=== PATIENT | male | born 1945 | race Caucasian/White ===

== ENCOUNTER → 2017-11-14 | Outpatient (CLI) | payer OTHER ==
[~2017-11-14] MED LIST: ASPECOTC PO; BENA40TA6 PO; FENO160T PO; MULT-506 PO; OPTIRAY 320 IV PRN; OXYC-57 PO; TRIA0.1C55 TOP
--- NOTE | 2017-11-14 07:11 | DIAGNOSTIC IMAGING REPORT ---
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 TECHNIQUE: Multidetector CT of the sinuses was performed before and after the administration of intravenous contrast. IV contrast: 93 mL of Optiray 320. A dose lowering technique was used consistent with the principles of ALARA (as low as reasonably achievable). COMPARISON: 06/10/2015. CT DOSE (mGy.cm): The estimated cumulative dose is 1302.82 mGy.cm. FINDINGS: [employer] Protection Specialist topogram: The patient is edentulous. Enhancing soft tissue mass in the anterior nasal cavity, which arises from the right nares and right anterior aspect of the cartilaginous portion of the nasal septum. There is extension of the enhancing mass into the frontal sinuses. Gross osseous destruction of the nasal bones and anterior most portion of the bony nasal septum. Osseous destruction of anterior ethmoid air cell septations as well as the outer wall of the frontal sinuses. The mass also extends along the superficial soft tissue of the nasofrontal region. No osseous destruction or bethany invasion of the nasal lacrimal ducts. No abnormal soft tissue infiltration approaches the bilateral medial canthi, no evidence of intraorbital invasion. The globes appear intact. Remainder of the paranasal sinuses and mastoid air cells clear. Vessels patent though with atherosclerosis of the cavernous segments of the internal carotid arteries noted. Allowing for limitations of CT, no evidence of intracranial extension. Visualized portion of the brain parenchyma within normal limits. IMPRESSION: 1. Destructive neoplasm centered at the anterior nasal cavity arising from the right nares and right anterior aspect of the cartilaginous portion of the nasal septum with extension into the anterior ethmoid air cells and frontal sinuses. No bethany evidence of intracranial or intraorbital extension. Electronically signed by: Kyle Ansari M.D. 11/14/2017 7:10 AM Dictated Date/Time: 11/14/2017 7:03 AM
== END | disposition home or self-care (01) ==
LOC: C.CTS 06:26
DX: C31.1 Malignant neoplasm of ethmoidal sinus (principal)

== ENCOUNTER → 2017-11-14 | Outpatient (CLI) | payer OTHER ==
[~2017-11-14] MED LIST changes: -OPTIRAY 320 IV PRN
--- NOTE | 2017-11-14 09:52 | DIAGNOSTIC IMAGING REPORT ---
CHEST 2 VIEWS ROUTINE CLINICAL HISTORY: 72 years-old Male presenting with Z01.818 Visit for pre-operative [id number]. TECHNIQUE: PA and lateral views of the chest were obtained. COMPARISON: PET/CT from 03/28/2016. FINDINGS: Atherosclerosis of the aortic arch. Cardiac silhouette normal in size. Lungs hyperinflated. No focal opacity. No large effusion or pneumothorax. Degenerative changes of the thoracic spine. Upper abdomen normal. IMPRESSION: 1. Findings suggest emphysema. No focal infiltrate to suggest pneumonia. Electronically signed by: Kyle Ansari M.D. 11/14/2017 9:51 AM Dictated Date/Time: 11/14/2017 9:49 AM
[2017-11-14 10:21] LABS: BASO % 0.2 %; BASO ABS # 0.01 K/uL (0-0.2); EOS % 1.2 %; EOS ABS # 0.07 K/uL (0-0.5); HEMATOCRIT 37.6 % (42-52); HEMOGLOBIN 13.4 g/dL (14.0-18.0); IG# 0.01 K/uL (0.00-0.02); LYMPH % 13.7 %; LYMPH ABS # 0.78 K/uL (1.2-3.4); MEAN CELL VOLUME 101.3 fL (80-100); MEAN CORPUSCULAR HEMOGLOBIN 36.1 pg (25-34); MEAN CORPUSCULAR HGB CONC 35.6 g/dl (32-36); MEAN PLATELET VOLUME 9.5 fL (7.4-10.4); MONO % 8.4 %; MONO ABS # 0.48 K/uL (0.11-0.59); NEUT % 76.3 %; NEUT ABS # 4.34 K/uL (1.4-6.5); PLATELET COUNT 180 K/uL (130-400); RED CELL DISTRIBUTION WIDTH CV 12.6 % (11.5-14.5); RED CELL DISTRIBUTION WIDTH SD 46.5 fL (36.4-46.3); WHITE BLOOD COUNT 5.69 K/uL (4.8-10.8)
[2017-11-14 10:25] LABS: POTASSIUM 4.7 mmol/L (3.5-5.1)
[2017-11-14 10:26] LABS: PTT PATIENT 26.1 SECONDS (21.0-31.0)
== END | disposition home or self-care (01) ==
LOC: C.CPL 09:13
DX: Z01.818 Encounter for other preprocedural examination (principal); C31.1 Malignant neoplasm of ethmoidal sinus

== ENCOUNTER 2017-11-15 06:52 | Day surgery (SDC) | payer OTHER ==
[~2017-11-15] VITALS: Ht 172.7 cm; Wt 60.0 kg
[~2017-11-15 06:52] MED LIST changes: -ASPECOTC PO; +CEFAZOLIN 2000MG IV PUSH 15 ML IV SCH; +LACTATED RINGER'S 1000ML 1,000 ML IV SCH; +OXYMETAZOLINE HCL 0.05% NA SPR 15 ML BTL SCH
[2017-11-15 07:23] VITALS: BP 167/79; PULSE 68; TEMP 36.4; O2SAT 98; Ht 172.7 cm; Wt 60.0 kg
[2017-11-15] MEDS ORDERED: ASPECOTC PO (07:48)
[2017-11-15] MEDS ORDERED: FENTANYL CITRATE INJ 50 MCG/1 ML 2 ML VIAL ONE (07:51)
[2017-11-15] MEDS ORDERED: MIDAZOLAM HCL 1 MG/ML 2ML VIAL ONE (07:51)
--- NOTE | 2017-11-15 08:21 | History & Physical Bridge Note ---
H&P Re-Evaluation Bridge Note: I have examined the patient, reviewed the History & Physical and in the interval since the performance of the History & Physical I have noted the following changes of clinical significance: No changes noted
[2017-11-15] MEDS ORDERED: EpINEphrine INJ 1MG/ML AMP 1 MG/ML AMP ONE (08:46)
[2017-11-15] MEDS ORDERED: LIDOCAINE/EPINEPHRINE 1% 20 ML VIAL ONE (08:46)
[2017-11-15] MEDS ORDERED: LIDOCAINE 4% INH SOLN 4 ML BTL ONE (08:46)
[2017-11-15] MEDS ORDERED: TRIAMCINOLONE ACET 40 MG/ML VIAL ONE (08:47)
[2017-11-15] MEDS ORDERED: ONDANSETRON INJ 2 MG/ML 2 ML VIAL IV PRN ×2 (09:15→10:15)
[2017-11-15] MEDS ORDERED: ATROPINE SULFATE 0.1 MG/ML 5ML SYR IV PRN (09:15)
[2017-11-15] MEDS ORDERED: FENTANYL CITRATE INJ 50 MCG/1 ML 2 ML VIAL IV PRN (09:15)
[2017-11-15] MEDS ORDERED: EpHEDrine SULFATE INJ 50 MG/ML AMP IV PRN (09:15)
[2017-11-15] MEDS ORDERED: DEXAMETHASONE SOD INJ 4 MG/ML VIAL ONE (09:21)
[2017-11-15] MEDS ORDERED: SUCCINYLCHOLINE CHLORIDE 20 MG/ML 10 ML VIAL IV ONE (09:21)
[2017-11-15] MEDS ORDERED: ONDANSETRON INJ 2 MG/ML 2 ML VIAL ONE (09:21)
[2017-11-15] MEDS ORDERED: ROCURONIUM BROMIDE 10 MG/ML 5 ML VIAL IV ONE (09:21)
[2017-11-15] MEDS ORDERED: LIDOCAINE HCL 2% 2 ML VIAL (20MG/ML) ONE (09:21)
[2017-11-15] MEDS ORDERED: PROPOFOL IV EMULSION 10 MG/ML 20 ML VIAL IV ONE (09:21)
--- NOTE | 2017-11-15 10:04 | [facility] Operative Report ---
Operative Report Operative Date Nov 15, 2017. Pre-Operative Diagnosis Cancer of Ethmoid Sinus Post-Operative Diagnosis Cancer of Ethmoid Sinus Procedure(s) Performed Diagnostic Nasal Endoscopy with Biopsy Surgeon Dr Licea Rn Night Surgeon(s) None Estimated Blood Loss 5ML Findings 1. SEVERE BILATERAL SEPTAL DEVIATION 2. FRIABLE RIGHT SINONASAL MASS 3. 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 Any exceptions are noted below.
--- NOTE | 2017-11-15 10:07 | Discharge Instructions ---
Discharge Instructions Date of Service Nov 15, 2017. Admission Reason for Admission: Cancer Of Ethmoid Sinus Discharge Discharge Diagnosis / Problem: SAME Discharge Goals Goal(s): Diagnostic testing Activity Recommendations Activity Limitations: as noted below LIGHT ACTIVITY AND NO NOSE BLOWING FOR 1 WEEK; NO DRIVING WHILE ON PERCOCET . Current Hospital Diet Patient's current hospital diet: Discharge Diet Recommended Diet: Regular Diet Procedures Procedures Performed: Diagnostic Nasal Endoscopy with Biopsy Pending Studies Studies pending at discharge: no Medical Emergencies . Who to Call and When: Medical Emergencies: If at any time you feel your situation is an emergency, please call 911 immediately. . Non-Emergent Contact Non-Emergency issues call your: Surgeon . . "Provider Documentation" section prepared by Rodrigue Licea. .
[2017-11-15] MEDS ORDERED: OXYMETAZOLINE HCL 0.05% NA SPR 15 ML BTL PRN (10:15)
[2017-11-15] MEDS ORDERED: OXYCODONE/ACETAMINOPHEN 5-325 TAB PO PRN (10:15)
[2017-11-15 11:05] VITALS: BP 177/87; PULSE 73; TEMP 36.3; O2SAT 96
--- NOTE | 2017-11-15 11:06 | Anesthesiology Progress Note ---
Anesthesia Post Op Note Date & Time Nov 15, 2017 at 11:05 Vital Signs Pain Intensity: 0 Vital Signs Past 12 Hours Date Time Temp Pulse Resp B/P (MAP) Pulse Ox O2 Delivery O2 Flow Rate FiO2 11/15/17 10:55 74 15 159/85 94 Room Air 11/15/17 10:50 36.2 72 18 165/83 94 Room Air 11/15/17 10:40 72 21 168/86 96 Room Air 11/15/17 10:30 80 25 174/95 95 Room Air 11/15/17 10:20 77 23 154/87 100 Oxymask 10 11/15/17 10:14 36.0 72 19 159/91 100 Oxymask 10 11/15/17 07:23 36.4 68 18 167/79 (108) 98 Room Air Notes Mental Status: alert / awake / arousable, participated in evaluation Pt Amnestic to Procedure: Yes Nausea / Vomiting: adequately controlled Pain: adequately controlled Airway Patency, RR, SpO2: stable & adequate BP & HR: stable & adequate Hydration State: stable & adequate Anesthetic Complications: no major complications apparent
[2017-11-15 11:35] VITALS: BP 176/91; PULSE 78; TEMP 36.3; O2SAT 97
--- NOTE | 2017-11-15 11:35 | OPERATIVE REPORT ---
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 PROCEDURE: Diagnostic nasal endoscopy with biopsies. SURGEON: Rodrigue Licea MD ANESTHESIA: General endotracheal. ESTIMATED BLOOD LOSS: 5 mL FINDINGS: 1. Synechia between the right nasal septum and inferior turbinate. 2. Severe bilateral septal deviation. 3. Friable mass within the right nasal cavity. SPECIMENS: Right nasal cavity mass for both permanent and frozen pathological assessment. COMPLICATIONS: None. 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 The patient elected to treat the tumor with a combination of chemotherapy and radiation. He has had progressive right nasal airway obstruction with gross disfigurement of his nasal dorsum and a CT scan that is worrisome for persistent disease with both cartilaginous and bony destruction. I had recommended diagnostic nasal endoscopy with biopsies with intraoperative frozen sections in the OR and he presents for the above-mentioned procedure on an outpatient elective basis. DESCRIPTION OF PROCEDURE: After informed consent had been obtained from the patient, the patient was wheeled to the operating room and placed on the operating table in the supine position. Monitors were placed and after the administration of general endotracheal anesthesia, the patient was prepped in usual fashion for endoscopic sinus surgery. Lidocaine and epinephrine pledgets were placed in the bilateral nasal cavities and pressure applied. The pledgets were then removed. A 0 degree endoscope was used to inspect the nasal cavities bilaterally. This was difficult due to the severe bilateral septal deviation. There was a synechia between the right nasal septum and lateral nasal wall. This was lysed using a freer elevator. Within the middle meatus, there was a friable soft tissue mass that clinically appeared to be worrisome for persistent malignancy. Straight John-Cut forceps were used to take multiple biopsies of this mass and these were sent for both frozen and permanent pathological assessment. It appeared as if the friable tissue eroded the medial orbital wall as palpation of the patient's eye resulted in transmission of movement of the tissues that were seen endoscopically. Lidocaine and epinephrine pledget was placed into the right middle meatus and the left side was then addressed. On this side, there was severe septal deviation but there was no evidence of persistent/recurrent disease as the left middle meatus and ethmoid cavity were widely patent with normal-appearing mucosa. Frozen section diagnosis came back as malignant cells favoring persistent/recurrent squamous cell carcinoma. The pledget was removed from the right middle meatus. Stammberger nasal dressing was placed into the right middle meatus and ethmoid cavity. An orogastric tube was placed and the stomach was suctioned free of air and stomach contents. This marked the end of the case. The patient tolerated the procedure well with no apparent complications. The patient was extubated and transferred to recovery room in stable condition. I attest to the content of the Intraoperative Record and any orders documented therein. Any exception s are noted below.
== END 2017-11-15 11:40 | disposition home or self-care (01) ==
LOC: C.ACU 06:52
DX: C31.1 Malignant neoplasm of ethmoidal sinus (principal); I10 Essential (primary) hypertension; J44.9 Chronic obstructive pulmonary disease, unspecified; Z92.21 Personal history of antineoplastic chemotherapy; F17.200 Nicotine dependence, unspecified, uncomplicated; Z79.899 Other long term (current) drug therapy

== ENCOUNTER → 2017-11-29 | Outpatient (CLI) | payer OTHER ==
[~2017-11-29] MED LIST changes: -CEFAZOLIN 2000MG IV PUSH 15 ML IV SCH; -FENO160T PO; -LACTATED RINGER'S 1000ML 1,000 ML IV SCH; -OXYMETAZOLINE HCL 0.05% NA SPR 15 ML BTL SCH; -TRIA0.1C55 TOP
--- NOTE | 2017-11-29 10:34 | DIAGNOSTIC IMAGING REPORT ---
PET/CT CLINICAL HISTORY: Head and neck cancer. COMPARISON STUDY: PET CT dated 03/28/2016. CT scan of the paranasal sinuses dated 11/14/2017. TECHNIQUE: One hour following the IV administration of 13.74 mCi of F-18 FDG, PET/CT examination was performed from the vertex through the bony pelvis. Noncontrast CT is performed for the purposes of anatomic correlation and attenuation correction. Note that this does not reflect a diagnostic CT examination. Images were reviewed on a separate [employer] independent workstation. Fused images were obtained. Standard uptake values reported are maximum values within the region of interest expressed in gm/mL. FINDINGS: PET FINDINGS: Head and neck: There is expected physiologic activity within the brain parenchyma and salivary glands. There is a 3.0 x 2.2 cm mass lesion centered in the right nasal cavity seen on image #44 of the head and neck series. This is FDG avid with a maximum SUV of 9.8. There is destruction of the right nasal bone, the tip of the left nasal bone, as well as the cartilaginous nasal septum. This extends to the dermal surface and into the inferior aspect of the frontal sinuses. This is consistent with the patient's known head and neck cancer. No additional FDG avid lesions are identified in the pharynx. No cervical lymphadenopathy is seen. There is fluid seen within the frontal sinuses as well as the anterior ethmoid sinuses. Thorax: Evaluation of the thorax demonstrates expected physiologic myocardial activity. Abdomen and pelvis: There is expected activity within the liver, spleen, kidneys, renal collecting system, and bladder. Low-level bowel activity is likely within physical limits. Unenhanced CT images: The brain parenchyma is normal in appearance noting age-related involutional change. The bony orbits appear intact. Orbital contents are within normal limits. The maxillary sphenoid sinuses are clear. The mastoid air cells are well pneumatized. The salivary and thyroid glands are normal as imaged. There is mild atherosclerotic calcification of the thoracic aorta which is normal in caliber. The heart is normal in size and without pericardial effusion. The coronary arteries are calcified. No mediastinal, hilar, or axillary lymphadenopathy is identified. Emphysematous change is noted at the lung apices. No airspace consolidation or pleural effusion is identified. A calcified granuloma is noted in the right middle lobe. No concerning pulmonary lesion is seen. The unenhanced liver, gallbladder, spleen, pancreas, and adrenal glands are grossly unremarkable. The kidneys demonstrate mild cortical atrophy and are without hydronephrosis. A 3.6 cm exophytic cyst arises from left upper pole. The abdominal aorta is normal in caliber noting mild to moderate atherosclerotic calcification. No bowel obstruction is identified. There is mild colonic diverticulosis without CT evidence of acute diverticulitis. No intraperitoneal free air or abdominal ascites is seen. There is no abdominal, pelvic, or inguinal lymphadenopathy. A tiny fat-containing umbilical hernia is noted. The bladder, prostate, and seminal vesicles are normal as visualized. The skeletal structures are osteopenic. Chronic posttraumatic deformity and postoperative change is noted in the left proximal femur. Chronic posterior matter deformity is also seen in the right iliac bone. There are healed right transverse process fractures in the lumbar spine. Healed right-sided rib fractures are noted. There is a mild superior endplate compression deformity of T12. IMPRESSION: 1. There is a 3.0 x 2.2 cm FDG avid mass lesion centered in the right nasal cavity as above. This is consistent with the known history of the head and neck cancer. 2. No additional lesions are identified within the pharynx. There are no pathologically enlarged or FDG avid cervical lymph nodes. 3. There is no evidence of metastatic disease in the chest, abdomen, or pelvis. 4. Emphysema. No airspace consolidation or pleural effusion is identified. 5. Additional findings as above. Electronically signed by: Jony Whyte M.D. 11/29/2017 10:33 AM Dictated Date/Time: 11/29/2017 10:17 AM
== END | disposition home or self-care (01) ==
LOC: C.PET 06:48
DX: C31.1 Malignant neoplasm of ethmoidal sinus (principal)

== ENCOUNTER 2022-03-04 14:27 | Observation (INO) ==
--- NOTE | 2022-03-04 15:07 | Emergency Department Note ---
Impression & Plan Pulmonary emboli, Cancer ED Provider Note NAME: AMMY LAW AGE: 76 SEX: M : 1945 ARRIVES VIA: Walk-In INFORMANT: [Patient] ED PROVIDER(S): [Jony Amaya MD] CHIEF COMPLAINT: Abnormal CT imaging HISTORY OF PRESENT ILLNESS: The patient is a 76-year-old male who presents to the ER with an outpatient CT that showed a large PE on the left lung. 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 He has already undergone chemo and radiation elza etime ago. He was having imaging today to see if things had spread or worsened and the PE was noted. The patient states that he does feel short of breath but that is always the case as he has COPD. There has been no chest pain. No syncope. No fever, cough or congestion. He has never had a DVT or PE. REVIEW OF SYSTEMS: See HPI for pertinent positives and negatives. A total of ten systems were reviewed and were otherwise negative. PMHx/PSHx: See Below SOCIAL HISTORY: See Below. PHYSICAL EXAM: GENERAL: Patient is in no acute distress. HEENT: No acute trauma, normocephalic atraumatic, mucous membranes moist, no nasal congestion, no scleral icterus. NECK: No stridor, no adenopathy, no meningismus, trachea is midline. LUNGS: Breath sounds diminished bilaterally, breath sounds equal. Scattered wheezes heard, no rhonchi. HEART: Without murmurs gallops or rubs, regular rate and rhythm. ABDOMEN: Soft, nontender, bowel sounds positive, no peritonitis. EXTREMITIES: No cyanosis, mild bilateral pedal edema, full range of motion of all the joints without pain or difficulty, no signs for acute trauma. NEUROLOGIC: Oriented x 3, no acute motor or sensory deficits, no focal weakness. SKIN: No rash, no jaundice, no diaphoresis. DIFFERENTIAL DIAGNOSIS: Reactive airway disease, pneumonia, pneumothorax, COPD, CHF, infection, cardiac ischemia, pulmonary embolism, bronchitis, musculoskeletal, gastrointestinal, as well as other pathologies. EMERGENCY DEPARTMENT COURSE/PROCEDURES: ECG: Indication was pulmonary embolus. The ECG shows a normal sinus rhythm with some sinus arrhythmia. The rate is 82. There is some nonspecific ST change noted diffusely. There are some T wave inversions in the inferior leads. No ST elevation. The QTc is 439. Compared to an ECG from 14 November 2017, the ST and T wave changes appear more diffuse. Continuous Cardiac Monitoring: An order was placed for continuous cardiac monitoring. The monitor shows a rate of 85 with normal sinus rhythm. MEDICAL DECISION MAKING: There is no leukocytosis or concerning anemia. There is a very mild thrombocytopenia. No coagulopathy. No significant electrolyte abnormality or renal failure. No concerning liver enzyme elevation. ECG shows a normal sinus rhythm, no obvious ischemia. Cardiac enzyme testing x1 is not consistent with acute cardiac injury. COVID test returned negative. Chest CT from earlier today does show a left-sided pulmonary embolus. Bilateral lower extremity ultrasound does not show any evidence for DVT. On exam, the patient was not toxic or hypoxic. The patient has a diagnosed malignancy. He presents with an outpatient CT showing a pulmonary embolus. The embolus was somewhat large. I do think a hospital stay for anticoagulation is indicated. I did speak with the patient and upper caser. The on-call hospitalist was consulted. Past Med/Surg History Medical History Cancer of ethmoid sinus CKD (chronic kidney disease), stage III HTN, goal to be determined Right ankle injury Tobacco use Surgical History History of sinus surgery Hx of bilateral cataract extraction S/P biopsy Family History Mother Cancer Social History Smoking Status: Current every day smoker Tobacco Type: Cigarettes Years Smoked: 50; Cigarettes Per Day: 1PPD; Hx Alcohol Use: No Hx Substance Use: No Preferred Language: Palauan Communication Ability: Effective Visual Impairment: Limited Hearing Ability: Hard of Hearing Acute Care Certified Nursing Assistant Required: No Beliefs That Will Affect Care: None marital status: Current Living Situation: Alone current occupational status: retired Other Information That Helps Us Care for You: No Feels Safe at Home: Yes Safety Concerns: Feels Safe At This Time Assistive Devices: Cane Allergies Allergies Allergy/AdvReac Type Severity Reaction Status Date / Time carboplatin Allergy Intermediate PT DENIES Verified 03/04/22 16:29 ALLERGY Home Meds Home Medications Medication Instructions Recorded Confirmed aspirin 81 mg chewable tablet 81 mg PO DAILY 07/12/18 03/04/22 multivitamin 1 tab PO DAILY 07/12/18 03/04/22 oxycodone 10 mg tablet 10 mg PO Q6H PRN pain 07/12/18 03/04/22 lisinopril 40 mg tablet 40 mg PO DAILY 03/04/22 03/04/22 mupirocin 2 % topical ointment 1 applic topical DIRECTED PRN 03/04/22 03/04/22 Skin Irritation Results & Data (ED) Vital Signs Vital Signs - 24 hr 03/04/22 14:30 03/04/22 14:28 Temperature 36.9 C Temperature Source Temporal Artery Scan Pulse Rate 85 Pulse Rate [Apical] 80 Pulse Rhythm [Apical] Regular Pulse Strength [Apical] Normal Respiratory Rate 19 16 Respiratory Effort / Characteristics Non-Labored Non-Labored Spontaneous Respiratory Depth Normal Respiratory Pattern Regular Blood Pressure 210/99 H Blood Pressure [Right Arm] 151/93 H Blood Pressure Mean 136 Blood Pressure Mean [Right Arm] 112 Blood Pressure Position [Right Arm] Sitting Pulse Oximetry 96 97 Oxygen Delivery Method Room Air Room Air Sepsis Recent Fever Within 48 Hours No Sepsis New/Unexplained Change in Mental Status N/A Sepsis Action Taken by Nursing No Action Required Home Medications Current Medication List: was personally reviewed by me Laboratory Data Attestation: I reviewed the patient's lab results. Result diagrams: 03/04/22 15:29 03/04/22 14:52 Lab Results 03/04/22 03/04/22 03/04/22 Range/Units 14:52 14:52 14:52 WBC Cancelled RBC Cancelled Hgb Cancelled Hct Cancelled MCV Cancelled MCH Cancelled MCHC Cancelled RDW Std Deviation Cancelled RDW Coeff of Yeyo Cancelled Plt Count Cancelled MPV Cancelled Immature Gran % (Auto) Cancelled Neut % (Auto) Cancelled Lymph % (Auto) Cancelled [place] % (Auto) Cancelled Eos % (Auto) Cancelled Baso % (Auto) Cancelled Neut # (Auto) Cancelled Lymph # (Auto) Cancelled [place] # (Auto) Cancelled Eos # (Auto) Cancelled Baso # (Auto) Cancelled Immature Gran # (Auto) Cancelled Absolute Nucleated RBC Cancelled Nucleated RBC % (auto) Cancelled Neutrophils % (Manual) Cancelled Band Neutrophils % Cancelled Lymphocytes % (Manual) Cancelled Prolymphocyte % Cancelled Reactive Lymphs % (Man) Cancelled Monocytes % (Manual) Cancelled Eosinophils % (Manual) Cancelled Basophils % (Manual) Cancelled Metamyelocytes % (Man) Cancelled Myelocytes % (Man) Cancelled Promyelocytes % (Man) Cancelled Blast Cells % (Manual) Cancelled Plasma Cell % (Manual) Cancelled Other Cells % Cancelled Nucleated RBC % Cancelled Neutrophils # (Manual) Cancelled Band Neutrophils # Cancelled Total Absolute Neuts Cancelled Lymphocytes # (Manual) Cancelled Prolymphocyte # Cancelled Reactive Lymphs # Cancelled Total Abs Lymphocytes Cancelled Monocytes # (Manual) Cancelled Eosinophils # (Manual) Cancelled Basophils # (Manual) Cancelled Metamyelocytes # (Man) Cancelled Myelocytes # (Manual) Cancelled Promyelocytes # (Man) Cancelled Blast Cells # (Man) Cancelled Plasma Cell # (Manual) Cancelled Other Cells # Cancelled Nucleated RBCs # (Man) Cancelled Hypersegmented Neuts Cancelled Hyposegmented Neuts Cancelled Hypogranular Neuts Cancelled Large Granular Lymphs Cancelled # Lrg Granular Lymphs Cancelled Hairy Cells Cancelled Smudge Cells Cancelled Toxic Granulation Cancelled Toxic Vacuolation Cancelled Dohle Bodies Cancelled Trino Rods Cancelled Platelet Estimate Cancelled Hypogranular Platelets Cancelled Clumped Platelets Cancelled Giant Platelets Cancelled Platelet Satelliting Cancelled RBC Morphology Cancelled Polychromasia Cancelled Hypochromasia Cancelled Poikilocytosis Cancelled Basophilic Stippling Cancelled Anisocytosis Cancelled Microcytosis Cancelled Macrocytosis Cancelled Spherocytes Cancelled Pappenheimer Bodies Cancelled Sickle Cells Cancelled Target Cells Cancelled Tear Drop Cells Cancelled Ovalocytes Cancelled Stomatocytes Cancelled [place] Bodies Cancelled Echinocytes Cancelled Acanthocytes (Spur) Cancelled Rouleaux Cancelled RBC Agglutinates Cancelled Schistocytes Cancelled Sezary Cell Cancelled PT Cancelled INR Cancelled APTT Cancelled PTT Ratio Cancelled Sodium 135 L (136-145) mmol/L Potassium 3.9 (3.5-5.1) mmol/L Chloride 99 (98-107) mmol/L Carbon Dioxide 24 (21-32) mmol/L Anion Gap 12 H (3-11) BUN 13 (6-23) mg/dl Creatinine 0.98 (0.6-1.4) mg/dl Est Cr Clr Drug Dosing 61.1 ml/min Est GFR ( Amer) 85.8 ml/min Est GFR (Non-Af Amer) 74.1 ml/min BUN/Creatinine Ratio 13.3 (10-20) Glucose 86 (70-99(Fasting)) mg/dl Calcium 9.8 (8.5-10.1) mg/dl Magnesium 1.7 (1.7-2.4) mg/dl Total Bilirubin 0.5 (0.2-1.0) mg/dl AST 35 (13-39) U/L ALT 21 (7-52) U/L Alkaline Phosphatase 74 (34-104) U/L Troponin I High Sens 18.2 (0-20) pg/ml Total Protein 8.0 (6.0-8.3) gm/dl Albumin 4.5 (3.4-5.0) gm/dl Globulin 3.5 (2.5-4.0) gm/dl Albumin/Globulin Ratio 1.3 (0.9-2) Blood Parasites ID Cancelled 03/04/22 03/04/22 Range/Units 15:16 15:29 WBC 5.47 RBC 3.89 L Hgb 14.0 Hct 39.8 L MCV 102.3 H MCH 36.0 H MCHC 35.2 RDW Std Deviation 51.3 H RDW Coeff of Yeyo 13.6 Plt Count 127 L MPV 9.6 Immature Gran % (Auto) 0.2 Neut % (Auto) 64.2 Lymph % (Auto) 20.3 [place] % (Auto) 12.4 Eos % (Auto) 2.2 Baso % (Auto) 0.7 Neut # (Auto) 3.51 Lymph # (Auto) 1.11 L [place] # (Auto) 0.68 Eos # (Auto) 0.12 Baso # (Auto) 0.04 Immature Gran # (Auto) 0.01 Absolute Nucleated RBC Nucleated RBC % (auto) Neutrophils % (Manual) Band Neutrophils % Lymphocytes % (Manual) Prolymphocyte % Reactive Lymphs % (Man) Monocytes % (Manual) Eosinophils % (Manual) Basophils % (Manual) Metamyelocytes % (Man) Myelocytes % (Man) Promyelocytes % (Man) Blast Cells % (Manual) Plasma Cell % (Manual) Other Cells % Nucleated RBC % Neutrophils # (Manual) Band Neutrophils # Total Absolute Neuts Lymphocytes # (Manual) Prolymphocyte # Reactive Lymphs # Total Abs Lymphocytes Monocytes # (Manual) Eosinophils # (Manual) Basophils # (Manual) Metamyelocytes # (Man) Myelocytes # (Manual) Promyelocytes # (Man) Blast Cells # (Man) Plasma Cell # (Manual) Other Cells # Nucleated RBCs # (Man) Hypersegmented Neuts Hyposegmented Neuts Hypogranular Neuts Large Granular Lymphs # Lrg Granular Lymphs Hairy Cells Smudge Cells Toxic Granulation Toxic Vacuolation Dohle Bodies Trino Rods Platelet Estimate Hypogranular Platelets Clumped Platelets Giant Platelets Platelet Satelliting RBC Morphology Polychromasia Hypochromasia Poikilocytosis Basophilic Stippling Anisocytosis Microcytosis Macrocytosis Spherocytes Pappenheimer Bodies Sickle Cells Target Cells Tear Drop Cells Ovalocytes Stomatocytes [place] Bodies Echinocytes Acanthocytes (Spur) Rouleaux RBC Agglutinates Schistocytes Sezary Cell PT 10.7 INR 1.0 APTT 23.4 PTT Ratio 0.9 Sodium (136-145) mmol/L Potassium (3.5-5.1) mmol/L Chloride (98-107) mmol/L Carbon Dioxide (21-32) mmol/L Anion Gap (3-11) BUN (6-23) mg/dl Creatinine (0.6-1.4) mg/dl Est Cr Clr Drug Dosing ml/min Est GFR ( Amer) ml/min Est GFR (Non-Af Amer) ml/min BUN/Creatinine Ratio (10-20) Glucose (70-99(Fasting)) mg/dl Calcium (8.5-10.1) mg/dl Magnesium (1.7-2.4) mg/dl Total Bilirubin (0.2-1.0) mg/dl AST (13-39) U/L ALT (7-52) U/L Alkaline Phosphatase (34-104) U/L Troponin I High Sens (0-20) pg/ml Total Protein (6.0-8.3) gm/dl Albumin (3.4-5.0) gm/dl Globulin (2.5-4.0) gm/dl Albumin/Globulin Ratio (0.9-2) Blood Parasites ID Administered Medications Heparin Sodium/Dextrose (Heparin Sodium/Dextrose) 25,000 units in 500 mls @ 25 mls/hr IV .Q20H ALLEN; Protocol Stop: 04/03/22 16:44 Last Titration: 03/04/22 19:07 Dose: 1,250 units/hr, 25 mls/hr Documented By: CARIDAD Co-signed By: JÚNIOR Admin: 03/04/22 17:02 Dose: 1,250 units/hr, 25 mls/hr Documented By: AYAN Co-signed By: Nicotine (Nicotine 21 Mg/24 Hr Tdsy) 21 mg TD QAM ALLEN Stop: 04/03/22 18:21 Last Admin: 03/04/22 20:03 Dose: 21 mg Documented By: CARIDAD Oxycodone HCl (Oxycodone Hcl Ir 5 Mg Tab (Immediate Release)) 10 mg PO Q6H PRN PRN Reason: Moderate Pain Stop: 03/18/22 18:21 Last Admin: 03/04/22 18:38 Dose: 10 mg Documented By: JÚNIOR Discontinued Medications Amlodipine Besylate (Amlodipine Besylate 5 Mg Tab) 5 mg PO NOW ONE Stop: 03/04/22 18:31 Last Admin: 03/04/22 20:04 Dose: 5 mg Documented By: CARIDAD Heparin Sodium (Porcine) (Heparin Sod (Porcine) 1000 Unit/Ml) 6,000 units IV NOW ONE Stop: 03/04/22 17:01 Last Admin: 03/04/22 17:01 Dose: 6,000 units Documented By: AYAN Co-signed By: Heparin Sodium (Porcine) (Heparin Sod (Porcine) 1000 Unit/Ml) Confirm Administered Dose 1,000 units .ROUTE .STK-MED ONE Stop: 03/04/22 16:40 Last Admin: 03/04/22 17:03 Dose: Not Given Documented By: AYAN Heparin Sodium/Dextrose (Heparin 45163 Unit/500 Ml D5w) Confirm Administered Dose 25,000 units IV .STK-MED ONE Stop: 03/04/22 16:40 Last Admin: 03/04/22 17:04 Dose: Not Given Documented By: AYAN Labetalol HCl (Labetalol Hcl Iv 5 Mg/Ml 20ml) 5 mg IV ONE ONE Stop: 03/04/22 20:33 Last Admin: 03/04/22 20:53 Dose: 5 mg Documented By: CARIDAD Co-signed By: SANAZ Imaging Data Radiologist's Impression: Venous Doppler Study 03/04/22 15:22 US venous doppler LE BI CLINICAL HISTORY: Lower extremity pain and swelling with pulmonary embolus COMPARISON: None available at the time of this dictation. TECHNIQUE: Bilateral lower extremity real-time compression venous ultrasound with Color Doppler imaging. Utilizing real-time ultrasonic imaging multiple real time high-resolution ultrasonic images with compression and noncompression maneuvers of the deep venous system in addition to color doppler imaging were performed from the co mmon femoral vein through the proximal calf veins. FINDINGS: Currently there is normal compressibility of the deep venous system from the common femoral vein through the proximal calf veins. No current evidence of acute thrombosis is identified. Impression: 1. No evidence of deep venous thrombus. ACT 112: Negative or not required by law. Electronically signed by: Hipolito Lane M.D. 03/04/2022 4:[address] chest diagnostic w con CLINICAL HISTORY: NECK AND HEAD CA . Evaluate adenopathy seen on PET/CT COMPARISON STUDY: PET/CT from 10/06/2021 CT DOSE: 253.13 mGy.cm TECHNIQUE: Standard CT of the Chest was performed with IV contrast. A dose lowering technique was utilized adhering to the principles of ALARA. Contrast Volume: Optiray 320, 95 ml FINDINGS: Vasculature: There has been interval development of an enlarged pulmonary evolving the left main pulmonary artery extension into left upper lobe and left lower lobe pulmonary arteries. No other pulmonary emboli are identified. Airway: The airway is clear. No endobronchial lesion is identified. Lungs: The lungs are clear of acute alveolar opacities, air bronchograms or pulmonary nodules. Pleura: There is no evidence for pleural effusion. There is no evidence for pneumothorax. Mediastinum: Compared to the PET CT, the subcarinal lymph node previously identified measures approximately 1.7 x 1.2 cm when compared to 1.8 x 1.0 cm with a PET/CT. This is essentially unchanged. Right hilar lymph node measures approximately 1.3 x 1.1 cm when compared to 1.7 x 1.0 cm previous study. This is again essentially unchanged. No new adenopathy is identified. The heart size is within normal limits. There is coronary artery calcification present. The thoracic aorta is within normal limits. There is no evidence for pericardial effusion. Upper abdomen: The adrenal glands are normal bilaterally. Osseous structures: There is no acute osseous pathology. IMPRESSION: 1. Interval development of large pulmonary embolus within the left main pulmonary artery with extension into the left upper lobe and left lower lobe pulmonary arteries. 2. No significant interval change in previously identified subcarinal right hilar adenopathy. There is lack of interval change is most characteristic of reactive response as suggested on the PET/CT. 3. No evidence for additional metastatic disease. A stat report will be called/faxed to the referring clinician. Initial attempts to reach the office were unsuccessful. Discharge Plan Visit Data Chief Complaint: Abnormal Labs/Diagnostic Testing Stated Complaint: REF BY , BLOOD CLOT, ABNORMAL LABS ED Provider: Jony Amaya Discharge Problem: Pulmonary emboli, Cancer Patient Disposition: Admitted As Inpatient Condition: Fair Discharge Instructions Interventions: ED Discharge Assessment Last Done: 03/04/22 18:10
[2022-03-04 15:36] LABS: Troponin I High Sensitivity 18.2 pg/ml (0-20)
[2022-03-04 15:38] LABS: Partial Thromboplastin Ratio 0.9; Partial Thromboplastin Time 23.4 Seconds (21.0-31.0); Prothrombin Time 10.7 Seconds (9.0-12.0)
[2022-03-04 15:38] LABS: Albumin Globulin Ratio 1.3 (0.9-2); Albumin Level 4.5 gm/dl (3.4-5.0); BUN Creatinine Ratio 13.3 (10-20); Bilirubin,Total 0.5 mg/dl (0.2-1.0); Calcium 9.8 mg/dl (8.5-10.1); Creatinine Clr Calc Pharmacy 61.1 ml/min; Est GFR (African American) 85.8 ml/min; Est GFR (Non-African American) 74.1 ml/min; Globulin 3.5 gm/dl (2.5-4.0); Magnesium 1.7 mg/dl (1.7-2.4); Potassium 3.9 mmol/L (3.5-5.1)
[2022-03-04 15:42] LABS: Basophils # (auto) 0.04 K/uL (0-0.2); Basophils % (auto) 0.7 %; Eosinophils # (auto) 0.12 K/uL (0-0.50); Eosinophils % (auto) 2.2 %; Hematocrit (blood only) 39.8 % (40.1-51.0); Immature Granulocytes # (auto) 0.01 K/uL (0.00-0.02); Immature Granulocytes % (auto) 0.2 %; Lymphocytes # (auto) 1.11 K/uL (1.2-3.4); Lymphocytes % (auto) 20.3 %; Mean Corpuscular Hgb Conc 35.2 g/dL (32.0-36.0); Mean Corpuscular Volume 102.3 fL (80.0-100.0); Mean Platelet Volume 9.6 fL (9.4-12.4); Monocytes # (auto) 0.68 K/uL (0.24-0.82); Monocytes % (auto) 12.4 %; Neutrophils # (auto) 3.51 K/uL (1.4-6.5); Neutrophils % (auto) 64.2 %; Platelet Count 127 K/uL (130-400); RDW Coefficient of Variation 13.6 % (11.5-14.5); RDW Standard Deviation 51.3 fL (36.4-46.3); Red Blood Count 3.89 M/uL (4.63-6.08); White Blood Count 5.47 K/ul (4.8-10.8)
--- NOTE | 2022-03-04 16:07 | Ultrasound Report ---
US venous doppler LE BI CLINICAL HISTORY: Lower extremity pain and swelling with pulmonary embolus COMPARISON: None available at the time of this dictation. TECHNIQUE: Bilateral lower extremity real-time compression venous ultrasound with Color Doppler imagi ng. Utilizing real-time ultrasonic imaging multiple real time high-resolution ultrasonic images with comp ression and noncompression maneuvers of the deep venous system in addition to color doppler imaging w ere performed from the common femoral vein through the proximal calf veins. FINDINGS: Currently there is normal compressibility of the deep venous system from the common femoral vein thro ugh the proximal calf veins. No current evidence of acute thrombosis is identified. Impression: 1. No evidence of deep venous thrombus. ACT 112: Negative or not required by law. Electronically signed by: Hipolito Lane M.D. 03/04/2022 4:06 PM
[2022-03-04] MEDS ORDERED: Heparin IV Adult Wt-Based Standard WITH Bolus Protocol IV SCH (16:24)
--- NOTE | 2022-03-04 16:28 | History & Physical Report ---
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 Today had routine CT chest for cancer follow-up and was found to have large pulmonary embolus in the left main pulmonary artery with extension into left upper lobe and left lower lobe pulmonary arteries Reports chronic SOB and cough worse in mornings and improves throughout the day at baseline. Denies any increased SOB, denies CP, hemoptysis, LE edema or erythema In ER 96% on RA, BP 151/93, P: 80 Bilateral venous Doppler negative for DVT Monitor on telemetry Start heparin drip Supplemental oxygen as needed CBC, BMP in a.m. 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 Previously patient on HCTZ, clonidine, metoprolol succinate however patient reports did not like how those medications made him feel Monitor BP, may need to add additional agent such as amlodipine (4) CKD (chronic kidney disease), stage III: Plan: Cr: 0.98. Baseline~1.3 Monitor renal function, avoid nephrotoxic agents when possible (5) Tobacco use: Plan: Nicotine patch Smoking cessation encouraged. Patient reports will never stop smoking DVT Prophylaxis PE present on admission. On Heparin IV DNI, would want CPR, defibrillation as per discussion with pt Follows with Dr Ty Arreola at [facility] for routine care Pt was seen and care coordinated with Dr Lucero. 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 Patient reports today had routine CT chest for cancer follow-up and was found to have large pulmonary embolus in the left main pulmonary artery with extension into left upper lobe and left lower lobe pulmonary arteries and was referred to ER. Patient reports shortness of breath at baseline and reports chronic cough, worse in morning productive of white sputum and decreases throughout the day. Patient denies any increased cough or sputum production with increased shortness of breath. Denies chest pain, pleuritic chest pain, hemoptysis. Denies any extremity pain or edema or erythema. Patient with history of hypertension and was previously on HCTZ, clonidine however patient reports did not like the side effects. He followed up with PCP on 02/28/2022 and was started on lisinopril. Patient reports that he stopped taking metoprolol "awhile ago". has chronic pain to ethmoid sinus area and uses oxycodone as needed. Denies fever/chills, diaphoresis, N/V/D/C, other METZ, dizziness, syncope, vision changes, neck pain, orthopnea, palpitations, sore throat, choking, otalgia, rhinorrhea, abdominal pain, paresthesias, weakness, extremity weakness, rashes, urinary symptoms. Allergies Allergy/AdvReac Type Severity Reaction Status Date / Time carboplatin Allergy Intermediate PT DENIES Verified 03/04/22 16:29 ALLERGY Home Medications Medication Instructions Recorded Confirmed Type aspirin 81 mg chewable tablet 81 mg PO DAILY 07/12/18 03/04/22 History multivitamin 1 tab PO DAILY 07/12/18 03/04/22 History oxycodone 10 mg tablet 10 mg PO Q6H PRN pain 07/12/18 03/04/22 History lisinopril 40 mg tablet 40 mg PO DAILY 03/04/22 03/04/22 History mupirocin 2 % topical ointment 1 applic topical DIRECTED PRN 03/04/22 03/04/22 History Skin Irritation Past Med/Surg History Medical History Cancer of ethmoid sinus CKD (chronic kidney disease), stage III HTN, goal to be determined Right ankle injury Tobacco use Surgical History History of sinus surgery Hx of bilateral cataract extraction S/P biopsy Family History Mother Cancer Social History Smoking Status: Current every day smoker Tobacco Type: Cigarettes Years Smoked: 50; Cigarettes Per Day: 1 pack day; Hx Alcohol Use: Yes (2-3 daily) Alcohol type: beer Hx Substance Use: No Preferred Language: Greek Communication Ability: Effective Visual Impairment: Limited Hearing Ability: Hard of Hearing Beliefs That Will Affect Care: None marital status: Current Living Situation: Alone current occupational status: retired Feels Safe at Home: Yes Review of Systems Review of Systems: All systems reviewed & are unremarkable except as noted in HPI & below Physical Exam Physical Exam: General: no distress, chronic ill appearing, WDWN Head: normocephalic, atraumatic Eyes: conjunctiva non-injected, anicteric ENT: normal inspection external ears, external nose with noted perforation right superior aspect, mucous membranes moist Neck: supple, trachea midline Lungs: clear, no respiratory distress, no wheezing/rhonchi/rales, pulse ox 96% on RA CV: RRR, no murmur, no pretibial edema Abd: normal BS, soft, non-tender Ext: no cyanosis, no erythema, no calf tenderness Neuro: A&O x 3, no focal deficits noted, normal affect Skin: warm, dry Results & Data Results & Data ([facility]) Vital Signs (Past 12 Hours) Vital Signs Temp Pulse Pulse Resp BP BP Pulse Ox 03/04/22 14:28 80 16 151/93 H 97 03/04/22 14:30 36.9 C 85 19 210/99 H 96 O2 Del Method 03/04/22 14:28 Room Air 03/04/22 14:30 Room Air Laboratory Results Short CBC 03/04/22 03/04/22 Range/Units 14:52 15:29 WBC Cancelled 5.47 Hgb Cancelled 14.0 Hct Cancelled 39.8 L Plt Count Cancelled 127 L BMP 03/04/22 14:52 Sodium 135 L Potassium 3.9 Chloride 99 Carbon Dioxide 24 BUN 13 Creatinine 0.98 Glucose 86 Calcium 9.8 Liver Function 03/04/22 Range/Units 14:52 Total Bilirubin 0.5 (0.2-1.0) mg/dl AST 35 (13-39) U/L ALT 21 (7-52) U/L Alkaline Phosphatase 74 (34-104) U/L Albumin 4.5 (3.4-5.0) gm/dl Diagnostic Findings Venous Doppler Study 03/04/22 15:22 US venous doppler LE CLINICAL HISTORY: Lower extremity pain and swelling with pulmonary embolus COMPARISON: None available at the time of this dictation. TECHNIQUE: Bilateral lower extremity real-time compression venous ultrasound with Color Doppler imaging. Utilizing real-time ultrasonic imaging multiple real time high-resolution ultrasonic images with compression and noncompression maneuvers of the deep venous system in addition to color doppler imaging were performed from the common femoral vein through the proximal calf veins. FINDINGS: Currently there is normal compressibility of the deep venous system from the common femoral vein through the proximal calf veins. No current evidence of acute thrombosis is identified. Impression: 1. No evidence of deep venous thrombus. ACT 112: Negative or not required by law. Electronically signed by: Hipolito Lane M.D. 03/04/2022 4:06 PM ECG Rhythm: sinus with SA Findings: + RBBB (incomplete RBBB) Code Status & VTE Plan VTE Prophylaxis Plan VTE Prophylaxis will be ordered: Yes Supervising Physician Co-Signing Physician Notes Patient was seen and examined independently at bedside. Chart reviewed. Case discussed with Mya MACIAS and agree with the documentation above. In summary, this is a 76 year old male with ethmoidal sinus cancer s/p chemo radiation who was referred to ED after OP CT chest showed left sided PE. US LE with no DVT. He is asymptomatic from his PE. Saturating well in room air, vitals stable, no dyspnea, chest pain. Started on heparin drip. Consult CM for hull check for DOACs. Likely can discharge tomorrow on DOACs. Likely will need anticoagulation life long or as long as malignancy is active. On exam, sitting in bed, AAOx3, nose with right superior perforation, chest clear, heart sounds normal, abd benign, no LE edema. Rest as per the note above.
[2022-03-04] MEDS ORDERED: HEPARIN SOD (PORCINE) 1000 UNIT/ML ONE (16:39)
[2022-03-04] MEDS ORDERED: HEPARIN 25000 UNIT/500 ML D5W IV ONE (16:39)
[2022-03-04] MEDS ORDERED: HEPARIN SODIUM/DEXTROSE 25,000 UNITS/500 ML BAG IV SCH (16:45)
[2022-03-04] MEDS ORDERED: HEPARIN SOD (PORCINE) 1000 UNIT/ML IV ONE (17:00)
[2022-03-04] MEDS ORDERED: MAGNESIUM HYDROXIDE SUSP 30 ML UDC PO PRN (18:22)
[2022-03-04] MEDS ORDERED: ONDANSETRON INJ 2 MG/ML 2 ML VIAL IV PRN (18:22)
[2022-03-04] MEDS ORDERED: POLYETHYLENE (MIRALAX) 17 GM PACK PO PRN (18:22)
[2022-03-04] MEDS ORDERED: ACETAMINOPHEN 325 MG TAB PO PRN (18:22)
[2022-03-04] MEDS ORDERED: amLODIPine BESYLATE 5 MG TAB PO ONE (18:30)
[2022-03-04] MEDS: oxyCODONE HCL IR 5 MG TAB (IMMEDIATE RELEASE) PO PRN (18:38)
[2022-03-04] MEDS: NICOTINE 21 MG/24 HR TDSY TD SCH (20:03)
[2022-03-04] MEDS ORDERED: LABETALOL HCL IV 5 MG/ML 20ML IV ONE (20:32)
--- NOTE | 2022-03-04 21:33 | Electrocardiogram Report ---
Test Reason : Blood Pressure : / mmHG Vent. Rate : 082 BPM Atrial Rate : 082 BPM P-R Int : 186 ms QRS Dur : 092 ms QT Int : 376 ms P-R-T Axes : 066 -65 -23 degrees QTc Int : 439 ms Normal sinus rhythm with sinus arrhythmia Left axis deviation Incomplete right bundle branch block Cannot rule out Anterior infarct , age undetermined Abnormal ECG When compared with ECG of 14-NOV-2017 09:53, Premature ventricular complexes are no longer Present Incomplete right bundle branch block is now Present Confirmed by Marvel Kaplan ([id number]) on 03/04/2022 9:33:25 PM Referred By: Shasta Paula Confirmed By:Marvel Kaplan
[2022-03-05 00:08] LABS: Partial Thromboplastin Ratio > 5.1
[2022-03-05 00:16] LABS: Partial Thromboplastin Time > 139.0 Seconds (21.0-31.0)
[2022-03-05 03:21] LABS: Hemoglobin 13.5 g/dl (14.0-18.0); Mean Corpuscular Hemoglobin 36.6 pg (25.0-34.0); Mean Corpuscular Hgb Conc 35.5 g/dL (32.0-36.0); Mean Platelet Volume 9.5 fL (9.4-12.4); Platelet Count 124 K/uL (130-400); RDW Coefficient of Variation 13.4 % (11.5-14.5); RDW Standard Deviation 51.1 fL (36.4-46.3); Red Blood Count 3.69 M/uL (4.63-6.08)
[2022-03-05 03:32] LABS: Partial Thromboplastin Ratio 1.5; Partial Thromboplastin Time 42.4 Seconds (21.0-31.0)
[2022-03-05 03:43] LABS: BUN Creatinine Ratio 14.9 (10-20); Calcium 8.7 mg/dl (8.5-10.1); Creatinine Clr Calc Pharmacy 63.7 ml/min; Est GFR (African American) 90.3 ml/min; Est GFR (Non-African American) 77.9 ml/min; Potassium 4.5 mmol/L (3.5-5.1)
[2022-03-05] MEDS: oxyCODONE HCL IR 5 MG TAB (IMMEDIATE RELEASE) PO PRN (04:08)
[2022-03-05] MEDS: NICOTINE 21 MG/24 HR TDSY TD SCH (08:16)
[2022-03-05] MEDS ORDERED: hydrALAZINE HCL 20 MG/ML VIAL IV PRN (08:19)
[2022-03-05] MEDS ORDERED: MULTIVITAMIN TAB PO SCH (09:00)
[2022-03-05] MEDS ORDERED: amLODIPine BESYLATE 5 MG TAB PO SCH (09:00)
[2022-03-05] MEDS ORDERED: lisinopril 40 MG TAB PO SCH (09:00)
[2022-03-05 10:19] LABS: Partial Thromboplastin Time 56.2 Seconds (21.0-31.0)
[2022-03-05] MEDS ORDERED: APIXABAN 2.5 MG TAB PO SCH (13:50)
--- NOTE | 2022-03-05 14:03 | Discharge Summary ---
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 Patient reports today had routine CT chest for cancer follow-up and was found to have large pulmonary embolus in the left main pulmonary artery with extension into left upper lobe and left lower lobe pulmonary arteries and was referred to ER. Patient reports shortness of breath at baseline and reports chronic cough, worse in morning productive of white sputum and decreases throughout the day. Patient denies any increased cough or sputum production with increased shortness of breath. Denies chest pain, pleuritic chest pain, hemoptysis. Denies any extremity pain or edema or erythema. Patient with history of hypertension and was previously on HCTZ, clonidine however patient reports did not like the side effects. He followed up with PCP on 02/28/2022 and was started on lisinopril. Patient reports that he stopped taking metoprolol "awhile ago". has chronic pain to ethmoid sinus area and uses oxycodone as needed. Denies fever/chills, diaphoresis, N/V/D/C, other METZ, dizziness, syncope, vision changes, neck pain, orthopnea, palpitations, sore throat, choking, otalgia, rhinorrhea, abdominal pain, paresthesias, weakness, extremity weakness, rashes, urinary symptoms. Admission Exam Per Admitting Provider General: no distress, chronic ill appearing, WDWN Head: normocephalic, atraumatic Eyes: conjunctiva non-injected, anicteric ENT: normal inspection external ears, external nose with noted perforation right superior aspect, mucous membranes moist Neck: supple, trachea midline Lungs: clear, no respiratory distress, no wheezing/rhonchi/rales, pulse ox 96% on RA CV: RRR, no murmur, no pretibial edema Abd: normal BS, soft, non-tender Ext: no cyanosis, no erythema, no calf tenderness Neuro: A&O x 3, no focal deficits noted, normal affect Skin: warm, dry Principal Diagnosis Pulmonary embolism Uncontrolled hypertension Discharge Exam GENERAL: Alert and oriented x3. NAD, on RA. HEENT: No pallor, no icterus. Pupils equal, round and reactive to light. Oral mucosa moist. Deformed ethmoidal area, rt superior perforation NECK: No JVD, no neck masses. HEART: S1 and S2 heard. Regular rate and rhythm. No murmur, no gallop. RESPIRATORY SYSTEM: Normal AP diameter. No accessory muscle use. No wheezing, no crackles. ABDOMEN: Soft, bowel sounds present, nontender, no distention. CENTRAL NERVOUS SYSTEM: No facial droop. Speech is clear. Obeys simple commands. Moves extremities. EXTREMITIES: No edema, no erythema seen. Discharge Data Allergies Allergy/AdvReac Type Severity Reaction Status Date / Time No Known Allergies Allergy Verified 03/05/22 00:36 Consultations 03/04/22 15:38 ED Decision to Admit Stat Ordered Studies 03/04/22 15:22 US venous doppler LE Stat Hospital Course (1) Pulmonary emboli: Plan 76-year-old male with PMH of HTN, CKD stage III, ethmoidal sinus cancer status post chemo and radiation, current tobacco abuse, presented to our hospital 03/[address] chest for cancer showing pulmonary embolus in the left pulmonary artery. Patient asymptomatic, no chest pain or feeling of heart racing or sob, troponin at presentation WNL, EKG w/ no acute changes, telemetry benign, patient was started on heparin drip, being transitioned to Eliquis 10 mg twice a day for 7 days followed by 5 mg twice a day. Patient made aware. Patient really wants to go home or else will sign AMA, patient advised to maintain at least 11 to 12 hours difference between 2 Eliquis doses. Patient's blood pressure was also elevated while in hospital, his blood pressure medications were being optimized, he will need to continue to follow-up with his primary care physician for further/continued optimization of his blood pressure management. Patient does not like to be talked about smoking cessation. Patient's sodium level was also low, which will need repeat blood test in 3 to 5 days upon discharge, patient made aware, patient advised to follow-up with his PCP. Patient is being discharged home with following instruction at the point of discharge: Follow-up with your primary care physician within a week time. You have been diagnosed with pulmonary embolism or blood clot in the lungs, take your Eliquis 10 mg twice a day for 7 days then 5 mg twice a day afterwards. Further discussion with your oncology or primary care as an outpatient regarding management of your anticoagulation. Follow-up with your oncology doctor in 1 to 2 weeks time. Get your blood work CBC and CMP done in 5 days upon discharge and have the results forwarded to your primary care physician. Your blood pressure has been on the higher side, your blood pressure medication has been optimized while in hospital but it was too short of a time to better optimize it, recommend to measure your blood pressure twice a day and make a log of it to take it to your primary care physician for further discussion/adjustment of your blood pressure medications. Take your medications as prescribed. Total Time Total Time Spent Total Time Spent (In Minutes): 40 Discharge Plan Discharge Items Patient Disposition: Home - Self-Care Reason For Visit: PE Discharge Diagnosis: Acute pulmonary embolism History of carcinoma of ethmoid sinuse status post chemo and radiation Condition on Discharge: Fair Activity: Resume your previous activity Non-emergency contact: Primary Care Provider Call non-emergency contact if: you have any medication questions, your symptoms worsen and your temperature is above 101 Follow-up/Referrals: Cheikh Balbuena V., [Primary Care Provider] - Diet: Heart Healthy Addtl Attending Provider Instructions: Follow-up with your primary care physician within a week time. You have been diagnosed with pulmonary embolism or blood clot in the lungs, take your Eliquis 10 mg twice a day for 7 days then 5 mg twice a day afterwards. Further discussion with your oncology or primary care as an outpatient regarding management of your anticoagulation. Follow-up with your oncology doctor in 1 to 2 weeks time. Get your blood work CBC and CMP done in 5 days upon discharge and have the results forwarded to your primary care physician. Your blood pressure has been on the higher side, your blood pressure medication has been optimized while in hospital but it was too short of a time to better optimize it, recommend to measure your blood pressure twice a day and make a log of it to take it to your primary care physician for further discussion/adjustment of your blood pressure medications. Take your medications as prescribed. Pending Studies at Discharge: No Stand-Alone Forms: My [employer], Smoking Cessation Medications and DC Order Prescriptions: New Eliquis 5 mg tablet 5 mg PO BID Qty: 74 0RF Rx Instructions: take 10 mg twice a day x 7 days, then 5 mg twice a day. amlodipine [Norvasc] 5 mg Tablet 5 mg PO QAM Qty: 30 0RF hydralazine 10 mg tablet 10 mg PO TID Qty: 90 0RF Continued oxycodone 10 mg tablet 10 mg PO Q6H PRN (Reason: pain) aspirin 81 mg tablet,chewable 81 mg PO DAILY lisinopril 40 mg tablet 40 mg PO DAILY mupirocin 2 % ointment 1 applic TOPICAL DIRECTED PRN (Reason: Skin Irritation) No Action multivitamin tablet 1 tab PO DAILY Discharge Orders: Discharge Order (Routine); Ordered 03/05/22 Ordered By: Kang Quijano Admission Data Admit Date/Time: 03/04/22 16:00 Attending Provider: Kang Quijano Admit Provider: Steffen Lucero Primary Care Provider: Cheikh Balbuena V. Other Providers: Steffen Lucero
[2022-03-05] MEDS ORDERED: APIXABAN 5 MG TABLET PO SCH (19:00)
== END 2022-03-05 15:00 | disposition home or self-care (01) ==
LOC: 2S 14:27 → ED 14:27 → SUATTDRO 16:00 → 2S 18:10